=== PATIENT | female | born 1970 | race Caucasian/White ===

== ENCOUNTER 2020-11-25 07:57 | Day surgery (SDC) | payer BC ==
[~2020-11-25 07:57] MED LIST: Midazolam 1 MG/ML 2 ML SDV ONE; Propofol 200 MG/20 ML SDV ONE; fentaNYL 100 MCG/2 ML SDV ONE
[2020-11-25] MEDS ORDERED: Cyanocobalamin (Vitamin B12) 1,000 MCG/ML SDV IM ONE (08:00)
[2020-11-25] MEDS ORDERED: Lactated Ringers 1,000 ML IV SCH (09:00)
[2020-11-25] MEDS ORDERED: Glycopyrrolate 0.2 MG/ML 2 ML SDV IVPUSH ONE (09:30)
[2020-11-25] MEDS ORDERED: MVI, Adult with Vitamin K 10 ML, Thiamine 200 MG, Zinc/Copper/Manganese/Selenium 1 ML i... IV ONE ×4 (10:00)
--- NOTE | 2020-12-01 12:02 | OR ---
DATE OF PROCEDURE: 11/25/2020 SURGEON: Eugene Morrison MD PREOPERATIVE DIAGNOSIS: Weight regain status post Frankie-en-Y gastric bypass with markedly enlarged gastric pouch, pouch gastritis, with scattered bleeding and gastrogastric fistula. OPERATIVE PROCEDURE: Esophagogastroduodenoscopy with biopsies of gastric pouch for CLOtest. ANESTHESIA: IV sedation. INDICATION FOR PROCEDURE: This is a 50-year-old status post an open Frankie-en-Y gastric bypass done in [place] in 2002. Preoperative weight was around 596 pounds. She did get down to below 200 pounds at some point, but now has had some relative rapid weight regain recently with the present weight of around 328 pounds. Plan is to proceed with upper GI endoscopy to evaluate the anatomy of the Frankie-en-Y gastric bypass. Potential risks of the procedure including bleeding and perforation were discussed, and the patient wishes to proceed. DETAILS OF PROCEDURE: The patient was taken to the operating room and placed in the left lateral decubitus position. IV sedation was administered, after which the upper GI endoscope was passed orally through the length of the esophagus into the gastric pouch and from there through the gastrojejunostomy roughly 20 cm into the Frankie limb. Findings included normal hypopharynx, larynx, upper esophageal sphincter, and esophageal body. At the EG junction, no significant abnormalities were noted. The gastric pouch, however, was noted to be strikingly enlarged, measuring around 11 cm. Gastrojejunostomy was relatively normally sized. There was a fistula between the gastric pouch and the remainder of the stomach that just admitted the gastroscope and there was quite a bit in the way of pouch gastritis, likely related to large gastric within the gastric pouch. Biopsies were obtained from the gastric pouch, sent for CLOtest for H pylori. No bleeding of the biopsy sites was seen and the procedure then concluded. Given the enlarged gastric pouch and gastrogastric fistula, the patient would appear to be a good candidate for revisional procedure. Her insurance company will be contacted regarding that and prior authorization request sent. Eugene Morrison MD /[id number]
== END 2020-11-25 11:58 | disposition home or self-care (01) ==
LOC: JP.SDS 07:57
PROVIDERS: ATTEND Surgery
DX: K29.70 Gastritis, unspecified, without bleeding (principal); K31.6 Fistula of stomach and duodenum; Z98.84 Bariatric surgery status
CPT/HCPCS: 43239; 87081; J2250; J2704; J3010; J3411; J3420; J3490; J7120

== ENCOUNTER 2020-12-31 07:15 | Inpatient (IN) | payer BC ==
[2020-12-31] MEDS ORDERED: fentaNYL 250 MCG/5 ML SDV ONE (07:20)
[2020-12-31] MEDS ORDERED: Dexamethasone 4 MG/ML SDV ONE (07:22)
[2020-12-31] MEDS ORDERED: Ondansetron 4 MG/2 ML SDV ONE (07:22)
[2020-12-31] MEDS ORDERED: Succinylcholine 200 MG/10 ML MDV ONE (07:22)
[2020-12-31] MEDS ORDERED: Glycopyrrolate 0.2 MG/ML 5 ML MDV ONE (07:22)
[2020-12-31] MEDS ORDERED: Propofol 200 MG/20 ML SDV ONE (07:22)
[2020-12-31] MEDS ORDERED: Rocuronium 50 MG/5 ML Vial ONE (07:22)
[2020-12-31] MEDS ORDERED: Neostigmine Methylsulfate 1 MG/ML 5 ML Syringe ONE (07:22)
[2020-12-31] MEDS ORDERED: Celecoxib 200 MG Cap PO ONE (07:30)
[2020-12-31] MEDS ORDERED: Scopolamine 1.5 MG Transdermal Patch TOP SCH (07:30)
[2020-12-31] MEDS ORDERED: Acetaminophen 500 MG Tab PO ONE (07:30)
[2020-12-31] MEDS ORDERED: Dextrose 5%-Lactated Ringers 1,000 ML IV SCH (07:30)
[2020-12-31] MEDS ORDERED: Naloxone 0.4 MG/ML SDV IVPUSH PRN (07:32)
[2020-12-31] MEDS ORDERED: HYDROmorphone/Normal Saline 15 MG/30 ML PCA IV PRN (07:32)
[2020-12-31] MEDS ORDERED: Levofloxacin/Dextrose 5%-Water 500 MG in Premix Bag 1 BAG IV ONE (08:00)
[2020-12-31 08:07] LABS: HEMOGLOBIN A1C 5.5 % (4.5-6.2)
[2020-12-31] MEDS ORDERED: Levofloxacin 500 MG/20 ML SDV ONE (08:32)
[2020-12-31] MEDS ORDERED: Ketamine 50 MG in Sodium Chloride 0.9% 49.5 ML IV SCH (08:45)
[2020-12-31] MEDS ORDERED: SODIUM CHLORIDE 0.9% IV ONE (08:45)
[2020-12-31] MEDS ORDERED: MAGNESIUM SULFATE IV ONE (08:45)
[2020-12-31] MEDS ORDERED: Ketamine 500 MG/5 ML MDV IV SCH (08:45)
[2020-12-31] MEDS ORDERED: Lactated Ringers 1,000 ML ONE (10:26)
[2020-12-31] MEDS ORDERED: fentaNYL 100 MCG/2 ML SDV ONE (11:11)
[2020-12-31] MEDS ORDERED: Non-Formulary Medication 1 Each IV ONE (12:26)
[2020-12-31] MEDS ORDERED: Cyclobenzaprine 10 MG Tab PO PRN (12:48)
[2020-12-31] MEDS ORDERED: Calcium Gluconate 10% 1 GM/10 ML SDV IVPUSH PRN (13:00)
[2020-12-31] MEDS ORDERED: Acetaminophen 500 MG Tab PO PRN (13:00)
[2020-12-31] MEDS ORDERED: Ondansetron 4 MG/2 ML SDV IVPUSH PRN (13:00)
[2020-12-31] MEDS ORDERED: Metoclopramide 10 MG/2 ML SDV IVPUSH PRN (13:00)
[2020-12-31] MEDS ORDERED: Albuterol/Ipratropium 3.0-0.5 MG/3 ML Neb Soln INH PRN (13:00)
[2020-12-31] MEDS ORDERED: diphenhydrAMINE 50 MG/ML SDV IVPUSH PRN (13:00)
[2020-12-31] MEDS ORDERED: Labetalol 20 MG/4 ML Syringe IVPUSH PRN (13:00)
[2020-12-31] MEDS: Dextrose 5%-Lactated Ringers 1,000 ML IV SCH ×2 (13:20→22:23)
[2020-12-31] MEDS ORDERED: Pantoprazole 40 MG Vial IVPUSH SCH (14:00)
[2020-12-31] MEDS: Albuterol/Ipratropium 3.0-0.5 MG/3 ML Neb Soln INH SCH ×2 (14:38→20:28)
[2020-12-31] MEDS: Acetaminophen 500 MG Tab PO SCH ×2 (15:46→23:44)
[2020-12-31] MEDS ORDERED: MVI, Adult with Vitamin K 10 ML, Thiamine 200 MG, Zinc/Copper/Manganese/Selenium 1 ML i... IV SCH ×8 (16:00→17:15)
[2020-12-31] MEDS ORDERED: Tranexamic Acid 1,000 MG in Sodium Chloride 0.9% 50 ML IV ONE (16:30)
[2020-12-31] MEDS ORDERED: Heparin Sodium 5,000 Units/ML Vial SUBCUT SCH (20:00)
[2020-12-31] MEDS: Venlafaxine 75 MG Tab PO SCH (20:29)
[2020-12-31] MEDS: Oxybutynin 5 MG Tab PO SCH (20:29)
[2021-01-01] MEDS ORDERED: Famotidine 20 MG/2 ML SDV IV ONE (03:00)
[2021-01-01] MEDS ORDERED: methylPREDNISolone Sodium Succinate 125 MG/2 ML SDV IV ONE (03:00)
[2021-01-01] MEDS ORDERED: Iopamidol 612 MG/ML 50 ML SDV PO STA (03:29)
[2021-01-01] MEDS: Dextrose 5%-Lactated Ringers 1,000 ML IV SCH (06:26)
[2021-01-01] MEDS ORDERED: Levofloxacin/Dextrose 5%-Water 500 MG in Premix Bag 1 BAG IV SCH (06:30)
[2021-01-01] MEDS ORDERED: Ondansetron 4 MG Tab.DIS PO PRN (07:12)
[2021-01-01] MEDS: Albuterol/Ipratropium 3.0-0.5 MG/3 ML Neb Soln INH SCH ×4 (07:12→20:46)
[2021-01-01] MEDS ORDERED: Lactated Ringers 1,000 ML IV SCH (07:15)
--- NOTE | 2021-01-01 08:46 | CR ---
[facility] HISTORY: Postbariatric surgery FINDINGS: Patient swallowed water-soluble contrast. Upright views of the abdomen show no evidence of extravasation or obstruction. There are 2 surgical drains in the left upper quadrant. IMPRESSION: Status post bariatric surgery No extravasation or obstruction seen
[2021-01-01] MEDS ORDERED: Pantoprazole 40 MG Vial IVPUSH SCH (09:00)
--- NOTE | 2021-01-01 09:32 | PN ---
DATE OF SERVICE: 01/01/2021 SUBJECTIVE: Mulu is a pleasant -kodq-hoo female who is postoperative day #1. Her pain has been controlled. Vital signs stable. Oral intake on a step 1 diet is 830. Urine output via Keller catheter is 1435. SUGAR drains 1 and 2 put out 310, 155 of a light red drainage. Labs this morning, hemoglobin was 13.9, glucose was 283. REVIEW OF SYSTEMS: Remainder of review of systems negative for any pertinent positives and negatives. OBJECTIVE: GENERAL: Alicia Lezama is a pleasant 50-year-old female. She is alert and orientated. VITAL SIGNS: TPR from 01:59 is 96.4, 97, 18, blood pressure 159/68, O2 by pulse oximetry is 94% on 2 L of O2. HEENT: Negative. NECK: Supple. HEART: Regular rate and rhythm. LUNGS: Clear. ABDOMEN: Dressings dry and intact. SUGAR drains as above. Abdominal binder is on. EXTREMITIES: Without peripheral edema. ASSESSMENT: Exploratory laparotomy with: 1. Revision of Frankie-en-Y gastric bypass surgery. 2. Closure of gastrogastric fistula and reduction of pouch size. 3. Revision of small bowel limb length Frankie limb 70 cm, biliary pancreatic limb to 70 cm, and common limb to 50 cm. 4. Repair of incarcerated incisional hernia. POSTOPERATIVE DIAGNOSES: 1. 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 2. Small incarcerated incisional hernia lower mid incision. Date of procedure: 12/31/2020. Surgeon: Eugene Morrison MD. PLAN: 1. Discontinue D5 LR IV. 2. Lactated Ringer's 80 mL per hour. 3. Discontinue Keller catheter. 4. May shower. 5. Step 2 gastric bypass diet without cereal. 6. Check CBC, CMP, mag, and phos in a.m. 7. Discontinue cardiac monitoring. 8. Communication order written, to drink 1 med cup every 20 minutes or 3 per hour, record at bedside. Ambulation encouraged as the patient is not on heparin, at least 6 to 8 times a day, short distances. SCDs while in bed. 9. Use incentive spirometer 10 times every hour while awake. 10.We will evaluate p.r.n. or in a.m. Zarina Ewing PA-C /[id number]
[2021-01-01] MEDS: Allopurinol 100 MG Tab PO SCH (10:01)
[2021-01-01] MEDS: Acetaminophen 500 MG Tab PO SCH ×2 (10:01→16:36)
[2021-01-01] MEDS: Escitalopram 10 MG Tab PO SCH (10:01)
[2021-01-01] MEDS: valACYclovir 1,000 MG Tab PO SCH (10:02)
[2021-01-01] MEDS: Oxybutynin 5 MG Tab PO SCH ×3 (10:02→20:47)
[2021-01-01] MEDS: Venlafaxine 75 MG Tab PO SCH ×2 (10:02→20:47)
[2021-01-01] MEDS: Celecoxib 200 MG Cap PO SCH ×2 (10:06→20:46)
[2021-01-01] MEDS: SCOPOLAMINE PATCH CHECK TOP SCH (10:07)
[2021-01-01] MEDS ORDERED: MVI, Adult with Vitamin K 10 ML, Thiamine 200 MG, Zinc/Copper/Manganese/Selenium 1 ML i... IV SCH ×4 (16:00)
[2021-01-01] MEDS: Pantoprazole 40 MG Delayed-Release Granules 1 Packet PO SCH (16:35)
[2021-01-02] MEDS: Acetaminophen 500 MG Tab PO SCH ×4 (00:23→23:53)
[2021-01-02] MEDS: hydrOXYzine HCL 100 MG/2 ML SDV IM PRN ×2 (00:27→16:52)
[2021-01-02] MEDS ORDERED: Levofloxacin 500 MG Tab PO ONE (06:30)
[2021-01-02] MEDS: Albuterol/Ipratropium 3.0-0.5 MG/3 ML Neb Soln INH SCH ×4 (07:14→20:13)
[2021-01-02] MEDS ORDERED: hydrOXYzine HCl 25 MG Tab PO PRN (07:25)
[2021-01-02] MEDS: HYDROmorphone 2 MG Tab PO PRN ×3 (07:26→20:12)
[2021-01-02] MEDS: Celecoxib 200 MG Cap PO SCH ×2 (08:45→20:15)
[2021-01-02] MEDS: Enoxaparin 60 MG/0.6 ML Syringe SUBCUT SCH ×2 (08:45→20:14)
[2021-01-02] MEDS: Docusate Sodium 100 MG Cap PO SCH ×2 (08:46→20:14)
[2021-01-02] MEDS: Venlafaxine 75 MG Tab PO SCH ×2 (08:46→20:15)
[2021-01-02] MEDS: Bisacodyl 5 MG Tab PO SCH ×2 (08:46→20:15)
[2021-01-02] MEDS: SCOPOLAMINE PATCH CHECK TOP SCH (08:47)
[2021-01-02] MEDS: Oxybutynin 5 MG Tab PO SCH ×3 (08:47→20:15)
[2021-01-02] MEDS: Escitalopram 10 MG Tab PO SCH (08:47)
[2021-01-02] MEDS: valACYclovir 1,000 MG Tab PO SCH (08:48)
[2021-01-02] MEDS: Allopurinol 100 MG Tab PO SCH (08:49)
[2021-01-02] MEDS ORDERED: Cyanocobalamin (Vitamin B12) 1,000 MCG/ML SDV IM ONE (09:00)
--- NOTE | 2021-01-02 09:25 | PN ---
DATE OF SERVICE: 01/02/2021 SUBJECTIVE: Mulu has no concerns or questions today. She has been afebrile. Oral intake 1940. Urine output 1999. SUGAR drains have put out 10 and 20 of a light pink serous drainage. REVIEW OF SYSTEMS: Remainder of review of systems negative for any pertinent positives and negatives. OBJECTIVE: GENERAL: Mulu Lezama is a pleasant 50-year-old female. She is alert and orientated, sitting up in the chair. VITAL SIGNS: TPR is 98, 68, 16, blood pressure 144/69. HEENT: Negative. NECK: Supple. HEART: Regular rate and rhythm. LUNGS: Clear. ABDOMEN: Dressings dry and intact. Abdominal binder on. EXTREMITIES: Without peripheral edema. ASSESSMENT: Exploratory laparotomy with: 1. Revision of Frankie-en-Y gastric bypass surgery. 2. Closure of gastrogastric fistula and reduction of pouch size. 3. Revision of small bowel limb length, Frankie limb 70 cm, biliary pancreatic limb 70 cm, and common limb to 50 cm. 4. Repair of incarcerated incisional hernia. POSTOPERATIVE DIAGNOSES: 1. 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 2. Small incarcerated incisional hernia, lower mid incision. 3. Date of procedure: 12/31/2020. Surgeon: Eugene Morrison MD. PLAN: 1. Discontinue heparin. 2. Lovenox 60 mg b.i.d. subcu. 3. Teach the patient how to give Lovenox at home. 4. Atarax 50 mg q.4 hours p.r.n. pain. 5. Colace 100 mg b.i.d. p.o. 6. Dulcolax tablets 10 mg one b.i.d. 7. Continue to ambulate and plan discharge in a.. Zarina Ewing PA-C /[id number]
[2021-01-02] MEDS: Pantoprazole 40 MG Delayed-Release Granules 1 Packet PO SCH (17:31)
[2021-01-03] MEDS: HYDROmorphone 2 MG Tab PO PRN ×2 (05:10→09:43)
[2021-01-03] MEDS: Albuterol/Ipratropium 3.0-0.5 MG/3 ML Neb Soln INH SCH (07:07)
[2021-01-03] MEDS: Acetaminophen 500 MG Tab PO SCH (07:28)
[2021-01-03] MEDS ORDERED: Enoxaparin 80 MG/0.8 ML Syringe SUBCUT SCH (09:00)
[2021-01-03] MEDS: Celecoxib 200 MG Cap PO SCH (09:06)
[2021-01-03] MEDS: Venlafaxine 75 MG Tab PO SCH (09:07)
[2021-01-03] MEDS: Escitalopram 10 MG Tab PO SCH (09:07)
[2021-01-03] MEDS: Bisacodyl 5 MG Tab PO SCH (09:07)
[2021-01-03] MEDS: Docusate Sodium 100 MG Cap PO SCH (09:07)
[2021-01-03] MEDS: Oxybutynin 5 MG Tab PO SCH (09:08)
[2021-01-03] MEDS: Allopurinol 100 MG Tab PO SCH (09:08)
[2021-01-03] MEDS: valACYclovir 1,000 MG Tab PO SCH (09:08)
--- NOTE | 2021-01-03 11:52 | DISCH ---
ADMISSION DIAGNOSES: Weight regain, SP Frankie-en-Y gastric bypass surgery, unspecified surgical malabsorption, B12 deficiency, history of renal calculus, depression, anxiety, joint pain, psoriatic arthropathy, chronic pain in both knees, osteoarthritis, restless legs syndrome, psoriasis, and migraine headaches. PROCEDURES: 1. Exploratory laparotomy with revision of Frankie-en-Y gastric bypass surgery. 2. Closure of gastrogastric fistula and reduction of pouch size. 3. Revision of small bowel limb length. Frankie limb 70 cm, biliary pancreatic limb to 70 cm, and common limb to 50 cm. 4. Repair of incarcerated incisional hernia. POSTOPERATIVE DIAGNOSES: 1. 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 2. Small incarcerated incisional hernia, lower mid incision. Date of procedure 12/31/2020. Surgeon: Eugene Morrison MD. HISTORY: Mulu Lezama is a pleasant 50-year-old female who had a Frankie-en-Y gastric bypass surgery with weight regain. After preoperative evaluation and discussion of possible risks and possible complications, she wished to proceed with surgical procedure. HOSPITAL COURSE: Mulu had her surgery on 12/31/2020. She had no operative complications. On postop day 1, her Keller catheter was discontinued. She was started on step-2 gastric bypass diet without cereal. On postop day 2, her activity was good. Oral intake adequate. She was started on Lovenox and she was taught how to give this to herself. Pain was controlled. On postop day 3, oral intake adequate. She had received vitamin B12, 1000 IM injection. Adequate dietary instructions. Vital signs stable. Pain managed and activity good. She was able to be discharged to home. PHYSICAL EXAMINATION: GENERAL: Mulu Lezama is a pleasant 50-year-old female. VITAL SIGNS: Height 5 feet 2 inches, weight is 310 pounds, BMI is 56.7. TPR is 95, 90, 16, blood pressure 155/85. HEENT: Negative. NECK: Supple. HEART: Regular rate and rhythm. LUNGS: Clear. ABDOMEN: Aquacel dressings on. Abdominal binder is on. EXTREMITIES: Without peripheral edema. DISPOSITION: Discharged to home. CONDITION: Stable and improving. FOLLOWUP APPOINTMENT: With Zarina Ewing PA-C, on 01/13/2021 at 11:00 a.m. HOME MEDICATIONS: 1. Dilaudid 2 mg p.o. q.4 hours p.r.n. pain, #42. 2. Lovenox 80 mg subcu daily x7 days. 3. Zofran ODT 4 mg q.4 hours p.r.n. pain, #30. 4. Tylenol 1000 mg p.o. q.8 hours. 5. Celebrex 200 mg p.o. daily. 6. Zyloprim 100 mg p.o. daily scheduled. 7. Valtrex 500 mg p.o. daily. 8. Effexor 75 mg p.o. b.i.d. 9. Maxalt PLASTERER MAINTENANCE 10 mg p.r.n. migraine headaches. 10.Ditropan XL 5 mg t.i.d. 11.Atrovent nasal spray 1 to 2 sprays t.i.d. 12.Flonase 2 inhalations daily p.r.n. 13.Premarin vaginal cream 0.5 g vaginal daily. 14.Lexapro 10 mg p.o. daily. 15.Albuterol inhaler 1 to 2 puffs every 4 hours p.r.n. shortness of breath. 16.Humira pen 40 mg subcu every other week. DIET: Step-2 gastric bypass diet with no cereal until 01/16/2021. ACTIVITY: No lifting greater than 10 pounds. Walk 6 times daily inside your house. Driving: Do not drive for 1 week and while on narcotic pain medication. Shower/bathing: May shower. Keep operative site clean and dry. Wear abdominal binder for 6 weeks and then as tolerated. Notify provider if any fever, increased pain, swelling, redness, drainage, nausea, vomiting. SPECIAL INSTRUCTION: Take off Aquacel dressing in 3 days and use incentive spirometer 10 times every hour while awake for 1 week. /[id number]
--- NOTE | 2021-01-06 12:43 | OR ---
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 POSTOPERATIVE DIAGNOSES: 1. 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 2. Small incarcerated incisional hernia on the lower aspect of the midline incision. OPERATIVE PROCEDURES: 1. Exploratory laparotomy with: a. Revision of Frankie-en-Y gastric bypass (including closure of gastrogastric fistula and reduction of the gastric pouch size). b. Revision of small bowel limb lengths (24945). 2. Repair of incarcerated incisional hernia (70365). ANESTHESIA: General. BOOK MENDER: Zarina Ewing PA-C. INDICATIONS FOR PROCEDURE: This is a 50-year-old female, presenting with recurrent morbid obesity, status post open Frankie-en-Y gastric bypass done in [place] in 2002. On recent investigation, the patient was noted to have very large gastric pouch along with gastrogastric fistula. Plan is to proceed with closure of the fistula, reduction of pouch size, and revision of the limb lengths all to facilitate increased weight loss. Potential risks of the procedure including bleeding, infection, leaks from various GI tract closures, problems with the limb lengths resulting in frequent loose bowel movements and/or nutritional deficiencies along with remote possibility of cardiopulmonary, septic, or hemorrhagic complications leading to were all discussed, and the patient wishes to proceed. DETAILS OF PROCEDURE: The patient was taken to the operating room, and after general endotracheal anesthesia was induced, Keller catheter was inserted, and the abdomen prepped and draped. Previous midline incision was partially used. It was not carried down to the full extent of the previous incision, and this was carried down through the skin, subcutaneous tissue. At lower end of incision, the patient was noted to have small incisional hernia which contained some incarcerated omentum within. The hernia contents were reduced and the hernia sac then replaced back into the peritoneal cavity. At this point, significant adhesions were noted primarily between the omentum and the abdominal wall small bowel limb lengths. These were all taken down. At this point, attention was then taken to the area of the gastric pouch. The liver was retracted off some adhesions into the area of the gastric pouch. The Heydi tube of 32-Kiswahili size was then placed per Anesthesia orally across the area of gastric pouch and from there into the Frankie limb. This then allowed more or less skeletonizing of the gastric attachments to the gastric pouch with a series of black and purple CHERRY loads, and this portion of the stomach was then resected leaving a relatively small pouch along with closure of the gastrogastric fistula by definition with removal of any further attachments of the stomach which were then removed from the field. Attention was taken to the small bowel. The previous Frankie limb length was around 70 cm. This was kept intact. The patient had a fairly proximal jejunojejunostomy with biliopancreatic limb measuring around 50 cm. The Frankie limb was at this point detached from the jejunojejunostomy and a secondary anastomosis was then accomplished between that and what had been the common limb 250 cm proximal to the ileocecal valve. This was accomplished with an internal firing of the CHERRY 60 mm stapler followed by a 30 mm internal firing and the common opening closed transversely with a CHERRY purple load. The angles anastomosed and mesenteric defect approximated with some 3-0 Vicryl stitch for the mesenteric defect. The biliopancreatic limb at this point was measured to be 270 cm, and at that point no further problems were noted. The abdomen was irrigated with antibiotic-containing saline solution. Fibrin sealant was used to reinforce the gastric resection area as well as the new jejunojejunostomy, and the midline fascia was then approximated with #2 Vicryl stitch, which included repair of the incisional hernia. Subcutaneous tissue was then approximated with some 3-0 Vicryl stitch and the skin with keith. Single Houston-Valentine drain had been placed to the left subcostal area positioned adjacent to the gastric resection portion of the procedure and secured to the skin with some 3-0 Vicryl stitch. The patient was taken to the recovery room in satisfactory condition. Physician behavioral health assistant, Zarina Ewing, played an essential role in assisting in this case, helping to position the patient, retract structures as needed, as well as suturing and cutting sutures when indicated. Her presence improved patient safety and decreased operative time. Eugene Morrison MD /[id number]
== END 2021-01-03 10:05 | disposition home or self-care (01) | DRG 220 ==
LOC: EDSTATUS 07:15 → JP.SDSSCHI 07:35 → JP.SDS 07:35 → JP.2SS 11:20
PROVIDERS: ADMIT Surgery; ATTEND Surgery
PROC: 0D160ZA Bypass Stomach to Jejunum, Open Approach (ICD-10-PCS; principal; 2020-12-31)
PROC: 0WQF0ZZ Repair Abdominal Wall, Open Approach (ICD-10-PCS; 2020-12-31)
PROC: 0DB60ZZ Excision of Stomach, Open Approach (ICD-10-PCS; 2020-12-31)
DX: K31.6 Fistula of stomach and duodenum (principal); E66.01 Morbid (severe) obesity due to excess calories; Z98.84 Bariatric surgery status; K43.0 Incisional hernia with obstruction, without gangrene; G89.29 Other chronic pain; L40.50 Arthropathic psoriasis, unspecified; Z90.710 Acquired absence of both cervix and uterus; Z79.899 Other long term (current) drug therapy; Z96.651 Presence of right artificial knee joint; Z68.43 Body mass index [BMI] 50.0-59.9, adult
CPT/HCPCS: 36415; 74240; 74240-26; 80053; 82728; 82962; 83036; 83735; 83880; 84100; 85025; 85027; 86850; 86900; 86901; 88307; 93005; 94640; 94762; A9270-GY; C9113; J0171; J0330; J1100; J1170; J1644; J1650; J1956; J2405; J2704; J2710; J2795; J3010; J3410; J3411; J3420; J3475; J3490; J7050; J7120; J7121; J7620-GY; Q9967